=== PATIENT | male | born 1990 ===

== ENCOUNTER 2020-04-16 18:41 | Inpatient (IN) ==
[2020-04-16] MEDS ORDERED: Ondansetron 4 mg VIAL 2 MG/ML 2 ml VIAL IV PRN (22:20)
[2020-04-16] MEDS ORDERED: LORazepam 2 mg VIAL 1 ml IV PUSH PRN (22:43)
[2020-04-16] MEDS ORDERED: Lorazepam PYXIS KEY PRN (22:43)
[2020-04-16] MEDS ORDERED: Haloperidol 5 mg/ml SDV IV/IM 5 MG/ML AMP IV SLOW PU PRN (22:43)
[2020-04-16 22:59] LABS: Hematocrit 36 % (42-52); Hemoglobin 12.4 g/dL (14.0-18.0); Mean Corpuscular HGB Conc 34 g/dL (31-36); Mean Corpuscular Hemoglobin 29 pg (27-31); Mean Corpuscular Volume 86 fL (80-94); Mean Platelet Volume 8.3 fL (7.4-10.4); Platelet Count 194 10^3/uL (150-450); Red Blood Count 4.21 10^6 /uL (4.18-5.48); Red Cell Distribution Width 13 % (10-15)
[2020-04-16 23:14] LABS: Albumin 3.4 g/dL (3.2-5.2); Albumin/Globulin Ratio 1.2 (1-3); Calcium 8.8 mg/dL (8.6-10.3); EGFR African American 186.6 (>60); EGFR Non-African American 154.2 (>60); Globulin 2.8 g/dL (2-4); Potassium 3.7 mmol/L (3.5-5.0); Total Bilirubin 0.6 mg/dL (0.2-1.0); Total Protein 6.2 g/dL (6.4-8.9)
[2020-04-16] MEDS: NS 0.9% 1000 ml BAG 1,000 ML IV SCH (23:25)
[2020-04-16] MEDS: Lidocaine PATCH 5% PATCH TRANSDERM SCH (23:36)
[2020-04-16 23:38] LABS: TSH (Thyroid Stimulating Horm) 2.18 mcIU/mL (0.34-5.60)
[2020-04-17 05:47] LABS: Urine Benzodiazepine Screen None Detected (None Detect); Urine Opiates Screen None Detected (None Detect)
[2020-04-17] MEDS: NS 0.9% 1000 ml BAG 1,000 ML IV SCH (06:58)
[2020-04-17] MEDS: Nicotine PATCH 7 MG/24 HR PATCH TRANSDERM SCH (08:47)
[2020-04-17] MEDS: DOXYcycline 100 mg CAP (*) PO SCH ×2 (08:47→22:04)
[2020-04-17] MEDS: Lidocaine PATCH 5% PATCH TRANSDERM SCH (08:48)
[2020-04-17] MEDS ORDERED: Haloperidol 5 mg/ml SDV IV/IM 5 MG/ML AMP IM PRN (12:17)
[2020-04-17] MEDS ORDERED: Lidocaine Patch REMOVE PATCH PATCH OFF SCH (21:00)
[2020-04-17] MEDS: Lidocaine Patch REMOVE PATCH PATCH OFF SCH (22:09)
[2020-04-18] MEDS: DOXYcycline 100 mg CAP (*) PO SCH ×2 (07:49→21:27)
[2020-04-18] MEDS: Nicotine PATCH 7 MG/24 HR PATCH TRANSDERM SCH (10:39)
[2020-04-18] MEDS: Lidocaine PATCH 5% PATCH TRANSDERM SCH (10:40)
[2020-04-18] MEDS: Lidocaine Patch REMOVE PATCH PATCH OFF SCH (21:27)
[2020-04-19] MEDS: Lidocaine PATCH 5% PATCH TRANSDERM SCH (09:03)
[2020-04-19] MEDS: DOXYcycline 100 mg CAP (*) PO SCH ×2 (09:03→21:01)
[2020-04-19] MEDS: Nicotine PATCH 7 MG/24 HR PATCH TRANSDERM SCH (09:04)
[2020-04-19 13:44] LABS: ABS Eosinophils 0.2 10^3/ul (0-0.6); ABS Lymphocytes 1.8 10^3/ul (1.0-4.8); ABS Monocytes 0.5 10^3/ul (0-0.8); Eosinophil % 2.5 %; Hematocrit 40 % (42-52); Hemoglobin 13.5 g/dL (14.0-18.0); Lymphocyte % 20.1 %; Mean Corpuscular HGB Conc 34 g/dL (31-36); Mean Corpuscular Hemoglobin 29 pg (27-31); Mean Corpuscular Volume 87 fL (80-94); Platelet Count 300 10^3/uL (150-450); Red Blood Count 4.63 10^6 /uL (4.18-5.48); Red Cell Distribution Width 14 % (10-15); White Blood Count 8.9 10^3/uL (3.5-10.8)
[2020-04-19 15:08] LABS: C Reactive Protein 39.09 mg/L (<8.01)
[2020-04-19] MEDS ORDERED: Bacitracin OINTMENT TUBE TOPICAL SCH (17:00)
[2020-04-19] MEDS: Lidocaine Patch REMOVE PATCH PATCH OFF SCH (21:04)
[2020-04-20] MEDS: DOXYcycline 100 mg CAP (*) PO SCH ×2 (08:51→20:06)
[2020-04-20] MEDS: Nicotine PATCH 7 MG/24 HR PATCH TRANSDERM SCH (08:52)
[2020-04-20] MEDS: Lidocaine PATCH 5% PATCH TRANSDERM SCH (08:53)
[2020-04-20] MEDS ORDERED: Nicotine GUM 2MG FRUIT FLAVOR PO ONE (14:53)
[2020-04-20] MEDS: Nicotine GUM 2MG FRUIT FLAVOR PO PRN ×2 (17:43→21:17)
[2020-04-20] MEDS: Lidocaine Patch REMOVE PATCH PATCH OFF SCH (21:25)
[2020-04-21] MEDS: DOXYcycline 100 mg CAP (*) PO SCH ×2 (09:30→20:25)
[2020-04-21] MEDS: Nicotine PATCH 7 MG/24 HR PATCH TRANSDERM SCH (09:31)
[2020-04-21] MEDS: Lidocaine PATCH 5% PATCH TRANSDERM SCH (09:32)
[2020-04-21] MEDS: Nicotine GUM 2MG FRUIT FLAVOR PO PRN ×4 (11:11→21:20)
[2020-04-21] MEDS: Lidocaine Patch REMOVE PATCH PATCH OFF SCH (20:45)
[2020-04-22] MEDS: Nicotine GUM 2MG FRUIT FLAVOR PO PRN ×6 (07:33→20:12)
[2020-04-22] MEDS: DOXYcycline 100 mg CAP (*) PO SCH ×2 (09:05→20:12)
[2020-04-22] MEDS: Nicotine PATCH 7 MG/24 HR PATCH TRANSDERM SCH (09:05)
[2020-04-22] MEDS: Lidocaine PATCH 5% PATCH TRANSDERM SCH (09:07)
[2020-04-22] MEDS: Lidocaine Patch REMOVE PATCH PATCH OFF SCH (20:41)
[2020-04-23] MEDS: Nicotine PATCH 7 MG/24 HR PATCH TRANSDERM SCH (08:15)
[2020-04-23] MEDS: DOXYcycline 100 mg CAP (*) PO SCH (08:17)
[2020-04-23] MEDS: Lidocaine PATCH 5% PATCH TRANSDERM SCH (08:18)
[2020-04-23] MEDS: Nicotine GUM 2MG FRUIT FLAVOR PO PRN (09:06)
[2020-04-23 09:13] VITALS: BP 108/70
== END 2020-04-23 11:42 | DRG 773 ==
LOC: MED → PREINTOOBSV 22:25 → BSU 04-17 12:56
PROVIDERS: ADMIT Internal Medicine; ATTEND Psychiatry & Neurology Psychiatry